=== PATIENT | male | born 1960 | race African-American/Black ===

== ENCOUNTER 2018-03-25 18:18 | Emergency (ER) | payer OTHER ==
[2018-03-25] MEDS ORDERED: LISINOPRIL20 MG PO (19:04)
[2018-03-25] MEDS ORDERED: NORVASC2.5 MG PO ×2 (19:08→22:51)
[2018-03-25] MEDS ORDERED: CATAPRES0.3 M1 PO ×2 (19:08→22:51)
[2018-03-25] MEDS ORDERED: ZESTRIL10 M1 PO (19:08)
[2018-03-25] MEDS ORDERED: LANTUS PEN100 U/ML SQ ×2 (19:09→22:51)
[2018-03-25 19:49] LABS: EOS # 0.1 (0.04-0.40); EOS % 1.4 % (0.0-4.0); HEMATOCRIT 31.1 % (42.0-52.0); HEMOGLOBIN 11.1 g/dL (13.5-18.0); LYMPH# 2.2 (1.50-4.00); MEAN CELL VOLUME 84 fl (78-100); MEAN CORPUSCULAR HEMOGLOBIN 30 pg (27-31); MEAN CORPUSCULAR HGB CONC 36 g/dL (33-37); MEAN PLATELET VOLUME 9.9 fl (7.4-10.4); MONO # 0.8 (0.20-0.80); NEU # 4.2 (1.40-6.50); PLATELET COUNT 166 K/mm3 (130-400); RED BLOOD COUNT 3.71 M/mm3 (4.20-5.60); WHITE BLOOD COUNT 7.3 K/mm3 (4.8-10.8)
[2018-03-25 20:02] LABS: ALBUMIN 3.7 g/dL (3.5-5.0); CALCIUM 9.5 mg/dL (8.4-10.2); POTASSIUM 4.2 mmol/L (3.6-5.0); TOTAL BILIRUBIN 0.3 mg/dL (0.2-1.3); TOTAL PROTEIN 7.2 g/dL (6.3-8.2)
[2018-03-25 20:30] LABS: URINE APPEARANCE CLEAR; URINE COLOR YELLOW
[2018-03-25 20:31] LABS: URINE BILIRUBIN NEGATIVE (NEGATIVE); URINE BLOOD TRACE (NEGATIVE); URINE KETONE NE (NEGATIVE); URINE LEUKOCYTE ESTERASE NEGATIVE (NEGATIVE); URINE NITRATE NEGATIVE (NEGATIVE); URINE PROTEIN(semi-quant) 3+ mg/dL (NEGATIVE); URINE UROBILINOGEN NORMAL (NORMAL)
[2018-03-25] MEDS ORDERED: LISINOPRIL10 MG PO (22:51)
[2018-03-26 00:30] VITALS: BP 124/81
== END 2018-03-26 00:30 ==
LOC: ED 18:18
PROVIDERS: Nurse Practitioner Family
DX: E11.65 Type 2 diabetes mellitus with hyperglycemia (principal); Z79.4 Long term (current) use of insulin; N17.9 Acute kidney failure, unspecified; T38.3X6A Underdosing of insulin and oral hypoglycemic [antidiabetic] drugs, initial encounter; Z91.138 Patient's unintentional underdosing of medication regimen for other reason; E11.22 Type 2 diabetes mellitus with diabetic chronic kidney disease; I12.9 Hypertensive chronic kidney disease with stage 1 through stage 4 chronic kidney disease, or unspecified chronic kidney disease; N18.9 Chronic kidney disease, unspecified; Z76.0 Encounter for issue of repeat prescription; T46.5X6A Underdosing of other antihypertensive drugs, initial encounter; E78.5 Hyperlipidemia, unspecified; F17.210 Nicotine dependence, cigarettes, uncomplicated
CPT/HCPCS: J1815; J7030